=== PATIENT | female | born 1945 | race Caucasian/White ===

== ENCOUNTER → 2017-09-09 | Outpatient (CLI) | payer MEDICARE ==
--- NOTE | 2017-09-13 08:29 | MM ---
Reason for exam: screening (asymptomatic). Last mammogram was performed 1 year ago. History: Patient is postmenopausal. Physical Findings: A clinical breast exam by your physician is recommended on an annual basis and results should be correlated with mammographic findings. MG 3D Screening Mammo W/Cad Bilateral CC and MLO view(s) were taken. Prior study comparison: August 31, 2016, bilateral MG 3d diag mammo w/cad LADI. April 08, 2016, right breast MG 3d diag mammo w/cad RT. The breast tissue is heterogeneously dense. This may lower the sensitivity of mammography. No significant changes when compared with prior studies. ASSESSMENT: Benign, BI-RAD 2 RECOMMENDATION: Routine screening mammogram of both breasts in 1 year.
--- NOTE | 2017-09-15 12:33 | P.ARTDOP ---
Arterial Doppler LOWER EXTREMITY ARTERIAL DOPPLER: DATE OF SERVICE: 09/09/2017 Reason for study: Bilateral leg pain. Doppler waveforms: Multiphasic bilaterally throughout. Pulse volume recording: Normal configuration. Pressure gradients: None. Ankle-brachial indices: Greater than 1 bilaterally. Toe pressures: [] on the right, [] on the left Impression: Normal study.
== END | disposition home or self-care (01) ==
LOC: RADMAMWWP 13:55
PROVIDERS: ATTEND Family Medicine
DX: Z12.31 Encounter for screening mammogram for malignant neoplasm of breast (principal); M79.659 Pain in unspecified thigh
CPT/HCPCS: 77063; 93923; G0202

== ENCOUNTER → 2019-12-15 | Outpatient (CLI) | payer MEDICARE ==
[2019-12-15 10:49] LABS: HCT 44.1 % (34.0-46.0); HGB 13.9 gm/dL (11.4-16.0); MCHC 31.6 g/dL (31.0-37.0); MCV 91.8 fL (80.0-100.0); Mean Platelet Volume 7.5; Platelet Count 277 k/uL (150-450); RBC 4.81 m/uL (3.80-5.40); RDW 12.3 % (11.5-15.5); WBC 6.5 k/uL (3.8-10.6)
[2019-12-15 10:56] LABS: Appearance,Urine Clear (Clear); Bilirubin,Urine Negative (Negative); Blood,Urine Small (Negative); Color,Urine Yellow; Glucose,Urine (UA) Negative (Negative); Ketones,Urine Negative (Negative); Leukocyte Esterase,Urine Negative (Negative); Mucus,Urine Rare /hpf; Nitrite,Urine Negative (Negative); PH, Urine 5.5 (5.0-8.0); Protein,Urine Negative (Negative); RBC,Urine 6 /hpf (0-5); Specific Gravity,Urine 1.018 (1.001-1.035); Urobilinogen,Urine <2.0 mg/dL (<2.0); WBC,Urine 1 /hpf (0-5)
[2019-12-15 11:06] LABS: ALT 13 U/L (4-34); AST 24 U/L (14-36); African American GFR (CKD) >90 (>60 ml/min/1.73 sqM); Albumin 4.3 g/dL (3.5-5.0); Alkaline Phosphatase 77 U/L (38-126); Anion Gap 6 mmol/L; Blood Urea Nitrogen 14 mg/dL (7-17); Calcium 9.5 mg/dL (8.4-10.2); Carbon Dioxide 26 mmol/L (22-30); Chloride 108 mmol/L (98-107); Glucose 91 mg/dL (74-99); INR 0.9 (<1.2); Non-African American GFR(CKD) 89 (>60 ml/min/1.73 sqM); Partial Thromboplastin Time 25.4 sec (22.0-30.0); Potassium 4.3 mmol/L (3.5-5.1); Prothrombin Time 9.8 sec (9.0-12.0); Sodium 140 mmol/L (137-145); Total Bilirubin 0.5 mg/dL (0.2-1.3)
== END | disposition home or self-care (01) ==
LOC: LABPAT 10:01
PROVIDERS: ATTEND Orthopaedic Surgery
DX: Z01.812 Encounter for preprocedural laboratory examination (principal); M16.11 Unilateral primary osteoarthritis, right hip; Z79.01 Long term (current) use of anticoagulants
CPT/HCPCS: 36415; 80053; 81001; 85027; 85610; 85730; 87070

== ENCOUNTER 2019-12-26 05:30 | Day surgery (SDC) | payer MEDICARE ==
[2019-12-18 15:06] VITALS: BMI 28.2
[~2019-12-26 05:30] MED LIST: ACETAMINOPHEN TAB 500 MG TAB PO ONE; GABAPENTIN 300 MG CAP PO ONE; MELOXICAM 7.5 MG TAB PO ONE; TRANEXAMIC ACID 1,000 MG in SODIUM CHLORIDE 0.9% 100 ML IVPB ONE
[2019-12-26] MEDS ORDERED: ONDANSETRON 4 MG/2 ML VIAL IVP ONE (05:41)
[2019-12-26] MEDS ORDERED: MIDAZOLAM 2 MG/2 ML VIAL IV PRN (05:41)
[2019-12-26] MEDS ORDERED: HYDROmorphone 0.5 MG/0.5 ML SYRINGE IVP PRN ×4 (05:41→08:31)
[2019-12-26] MEDS ORDERED: DEXAMETHASONE SOD PHOSPHATE 10 MG/ML 1 ML VIAL IV ONE (05:41)
[2019-12-26] MEDS: LACTATED RINGERS 1,000 ML IV SCH ×4 (06:10→21:42)
[2019-12-26] MEDS ORDERED: LIDOCAINE 1% 20 ML VIAL (10MG/ML) FOR IV START INTRADERMA ONE ×2 (06:10→06:13)
[2019-12-26] MEDS ORDERED: ceFAZolin 3,000 MG in SODIUM CHLORIDE 0.9% IRRIGATIO 3,000 ML IRRIGATION ONE (07:00)
[2019-12-26] MEDS: ROPIVACAINE 246.25 MG, EPINEPHrine 0.5 MG, KETOROLAC 30 MG, cloNIDine HCL/PF 80 MCG, WA... MISCELLANE ONE ×10 (07:22→08:11)
[2019-12-26] MEDS ORDERED: SODIUM CHLORIDE 0.9% 100 ML BAG ONE (07:54)
[2019-12-26] MEDS ORDERED: fentaNYL (PF) 50 MCG/ML 2 ML AMP ONE (07:54)
[2019-12-26] MEDS ORDERED: HEPARIN SODIUM,PORCINE 10,000 UNIT/ML 1 ML VIAL ONE (07:54)
[2019-12-26] MEDS ORDERED: MIDAZOLAM 2 MG/2 ML VIAL ONE (07:54)
[2019-12-26] MEDS ORDERED: ePHEDrine SULFATE/0.9% NACL/PF 50 MG/5 ML SYRINGE IV ONE (07:54)
[2019-12-26] MEDS ORDERED: PROPOFOL 10 MG/ML 20 ML VIAL IV ONE (07:54)
[2019-12-26] MEDS ORDERED: TRANEXAMIC ACID 1,000 MG/10 ML VIAL ONE (07:54)
[2019-12-26] MEDS ORDERED: SODIUM CHLORIDE 0.9% IRRIG 1,000 ML BTL IRRIGATION ONE (07:54)
[2019-12-26] MEDS ORDERED: LACTATED RINGERS 1,000 ML IV ONE ×2 (08:22)
[2019-12-26] MEDS ORDERED: NALOXONE 0.4 MG/ML 1 ML VIAL IV PRN (08:31)
[2019-12-26] MEDS ORDERED: HYDROcodone/APAP 7.5-325MG 1 EACH TAB PO PRN (08:31)
[2019-12-26] MEDS ORDERED: DIAZEPAM 5 MG TAB PO PRN (08:31)
[2019-12-26] MEDS ORDERED: MAGNESIUM HYDROXIDE 2,400 MG/10 ML CUP PO PRN (08:31)
[2019-12-26] MEDS ORDERED: ONDANSETRON 4 MG/2 ML VIAL IVP PRN (08:31)
[2019-12-26] MEDS ORDERED: ACETAMINOPHEN TAB 325 MG TAB PO PRN (08:31)
[2019-12-26] MEDS ORDERED: traMADol 50 MG TAB PO PRN (08:31)
--- NOTE | 2019-12-26 08:31 | P.OP ---
Date of Procedure: 12/26/19 Preoperative Diagnosis: Severe osteoarthritis right hip Postoperative Diagnosis: Severe osteoarthritis right hip Procedure(s) Performed: Right total hip arthroplasty with a direct anterior approach Implants: Pruett and nephew Polarstem size 3 standard Pruett [employer] Nephew R3, 3 hole acetabular shell, 48 mm Pruett [employer] Nephew reflection 6.5 mm cancellus screw, 20 mm 2 Pruett [employer] Nephew R3, XLPE 20 acetabular liner Pruett [employer] Nephew Oxinium femoral head 32 m, -3 All components were press-fit. The articulation is Oxinium on polyethylene. Anesthesia: spinal Surgeon: Jordy Ocampo Pathology: none sent (Femoral head) Condition: stable Disposition: PACU Indications for Procedure: After failure of conservative treatment we discussed the surgical and nonsurgical treatment options at length. Patient wishes to proceed with a total hip arthroplasty with a direct anterior approach. Complications specific to this procedure were discussed at length, including but not limited to infection, leg length discrepancy, dislocation, and nerve injury. Patient is aware of all these complications and informed consent was obtained Operative Findings: The operative findings are consistent with severe osteoarthritis of the right hip Description of Procedure: Patient was seen and evaluated in the preoperative area, consent was reviewed, and the surgical site was marked with a skin marker. Patient was then brought to the operating room and given prophylactic antibiotics intravenously. 1 g of Tranexamic acid was also given. A spinal anesthetic was administered by the anesthesia department. The patient was then placed on the [place] table with the bony prominences well-padded. The hip area was then prepped and draped in usual sterile fashion. A universal timeout was then performed, which confirmed the patient's name, surgical site, ALLERGIES, and procedure being performed. Next the incision site was located at 1 cm distal and 1 cm lateral to the anterior superior iliac spine. The skin and subcutaneous tissues were sharply incised. Incision was carefully dissected down to the fascia overlying the tensor fascia sade muscle. This fascia was then incised in line with the incision. Next, using blunt finger dissection, the tensor fascia sade muscle was dissected off its investing fascia. The muscle was then carefully retracted laterally with a cobra retractor over the lateral neck of the femur. Next, the circumflex vessels were identified and cauterized using the AquaMantis device. The anterior hip capsule was then exposed. The capsule was then opened and an inverted T fashion. Cobra retractors were then placed intracapsularly. The proximal femur was then visualized. The femoral neck was then osteotomized appropriate level above the lesser trochanter. Small amount of traction was placed with the [place] table. A small wedge of bone was then removed from the remaining femoral head. Next, using a corkscrew femoral head was easily removed from the acetabulum. On gross visual inspection, the femoral head had complete loss of articular cartilage in multiple periarticular osteophytes. Attention was then turned to the acetabulum. the acetabulum was exposed and any remaining labrum was excised. Sequential reaming of the acetabulum was performed using fluoroscopic guidance. When the appropriate size was reached, a trial was then placed. The position and fit of the trial was checked with fluoroscopy. The trial was then removed. Then, using fluoroscopic guidance, the final implant was impacted at 20 of anteversion and 40 of abduction, and fully seated in the acetabulum. 2 screws were then placed in the acetabulum. Again fluoroscopy was used to check position of the screws. Next, the liner was then impacted, with a 20 elevated liner located in the anterior superior quadrant. Component locking was confirmed. Attention was then directed to the femur. With the aid of the [place] table, the femur was externally rotated to approximately 130, extended, and abducted under the opposite leg. A side hook was then placed under the proximal femur, and the side hook elevator was used to elevate the proximal femur. Retractors were then placed. A capsular release was performed, as well as a release of the conjoined tendon, which afforded excellent visualization of the proximal femur. Next, a box osteotome was used to lateralize the proximal femur. A hand straightener was then used to locate the femoral canal. Sequential broaching was then performed with appropriate size which afforded excellent fixation in the proximal femur. A trial was then placed with appropriate head and neck, and the hip was gently reduced with the aid of the [place] table. Fluoroscopy was then used to check position of the components, as well as to ensure equal leg lengths. The hip was then gently dislocated and the trials were then removed. Final implants were then impacted and the hip was again reduced. Final fluoroscopic x-rays confirmed that the components were in anatomic position, as well as equal leg lengths. The hip was also taken through range of motion, and found to be stable. The hip was then copiously irrigated with antibiotic solution with pulsatile lavage. The hip was then irrigated with Irrisept solution. The soft tissues were then injected with a ropivacaine solution, which consisted of 246.25 mg of ropivacaine, 0.5 mg of epinephrine, 30 mg of Toradol, 80 g of clonidine, and 48.45 mL of sterile water, for a total of 100 mL of fluid injected. A second dose of 1 g of Tranexamic acid was also given. the fascia was then closed with 2-0 strata fix suture. The subcutaneous tissue was closed with 3-0 Vicryl. The subcuticular tissue was closed with 3-0 strata fix suture. The skin was then closed with Dermabond glue and a sterile silver dressing. The patient was then transferred to the recovery room in stable condition.
--- NOTE | 2019-12-26 09:39 | XR ---
EXAMINATION TYPE: XR Hip Limited RT DATE OF EXAM: 12/26/2019 Comparison: None Clinical History: 74-year-old female status post hip surgery, assess surgical alignment Findings: Right total hip arthroplasty is demonstrated. The acetabular cup and femoral stem components of the p rosthesis appear well seated without periprosthetic fracture. Scattered soft tissue air related to re cent operation. Alignment grossly anatomic. Impression: Uncomplicated postoperative appearance right total hip arthroplasty.
--- NOTE | 2019-12-26 10:33 | FL ---
EXAMINATION TYPE: FL guidance operating room, XR Hip Limited RT DATE OF EXAM: 12/26/2019 COMPARISON: NONE HISTORY: 74-year-old female in anterior right hip replacement FINDINGS: 2 intraoperative images showing placement of right total hip arthroplasty. FLUOROSCOPY Fluoroscopy time of 31 seconds was used during anterior right hip replacement. 2 image/s document/s the procedure. IMPRESSION: Intraoperative fluoroscopy as above.
[2019-12-26] MEDS ORDERED: MULTIVITAMINS, THERA 1 EACH TAB PO SCH (12:00)
[2019-12-26] MEDS: HYDROcodone/APAP 7.5-325MG 1 EACH TAB PO PRN ×2 (14:23→21:47)
--- NOTE | 2019-12-26 20:31 | P.CONS ---
History of Present Illness - Reason for Consult Consult date: 12/26/19 Medical management Requesting physician: Jordy Ocampo - Chief Complaint Right hip surgery - History of Present Illness Consultation: This is a very pleasant [address] Delphine Loyola. Chronic stable medical conditions include GERD, hypertension, osteoarthritis in multiple joints and anxiety depression. Patient underwent a right total hip arthroplasty. Postpro cedure pain is well controlled. No nausea vomiting. Patient did tolerate a light meal. No chest pain or shortness of breath. Daughter the bedside. Review of systems: GEN.: None EYES: None HEENT: None NECK: None RESPIRATORY: None CARDIOVASCULAR: None GASTROINTESTINAL: Heartburn GENITOURINARY: None MUSCULOSKELETAL: Joint pains LYMPHATICS: None HEMATOLOGICAL: None PSYCHIATRY: None NEUROLOGICAL: None Past medical history to include: GERD, hypertension, osteoarthritis, anxiety depression Social history: Smokes a pack over 3 days, alcohol socially, lives alone Family history: Reviewed, noncontributory to presentation Physical examination: VITAL SIGNS: 97.9, 69, 12, 106/63, 93% on room air GENERAL: [BMI 28.9, propped up in bed, comfortable. EYES: Pupils equal. Conjunctiva normal. HEENT: External appearance of nose and ears normal, oral cavity grossly normal. NECK: JVD not raised; masses not palpable. HEART: First and second heart sounds are normal; no edema. LUNGS: Respiratory rate normal; clear to auscultation. ABDOMEN: Soft, nontender, liver spleen not palpable, no masses palpable. PSYCH: Alert and oriented x3; mood and affect normal. MUSCULOSKELETAL: Evidence of OA in the hands, dressing over the right hip NEUROLOGICAL: Cranial nerves grossly intact; no facial asymmetry, power and sensation grossly intact. LYMPHATICS: No lymph nodes palpable in the axilla and neck INVESTIGATIONS, reviewed in the clinical context: Labs from 12/15/2039 White count 6.5 hemoglobin 13.9 potassium 4.3 creatinine 0.64 Assessment: -Right total hip arthroplasty -GERD -Essential hypertension -Primary osteoarthritis -Anxiety depression otherwise specified -Chronic nicotine dependence patient cigarette smoker Plan: Home medications resumed. Patient's aspirin 325 mg twice a day for DT prophylaxis per Dr. Ocampo. Care was discussed with the patient daughter. Question were answered. Thank you Dr. Ocampo Past Medical History Past Medical History: GERD/Reflux, Hypertension, Osteoarthritis (OA) History of Any Multi-Drug Resistant Organisms: None Reported Past Surgical History: Cholecystectomy, Hysterectomy, Joint Replacement Additional Past Surgical History / Comment(s): eliel hip replacement,elbow surgery, cyst surgery Past Anesthesia/Blood Transfusion Reactions: Postoperative Nausea & Vomiting (PONV) Past Psychological History: Anxiety, Depression Smoking Status: Current every day smoker Past Alcohol Use History: Occasional Additional Past Alcohol Use History / Comment(s): smoker since social smoker Past Drug Use History: None Reported - Past Family History Mother Family Medical History: No Reported History Medications and Allergies Home Medications Medication Instructions Recorded Confirmed Type Escitalopram [Lexapro] 10 mg PO DAILY 12/18/19 12/18/19 History Omeprazole 20 mg PO Q48H 12/18/19 12/18/19 History Simvastatin [Zocor] 20 mg PO DAILY 12/18/19 12/18/19 History amLODIPine BESYLATE/BENAZEPRIL 1 each PO DAILY 12/18/19 12/18/19 History [amLODIPine BESYLATE/BENAZEPRIL 5-10 mg] Allergies Allergy/AdvReac Type Severity Reaction Status Date / Time No Known Allergies Allergy Verified 12/26/19 05:57 Physical Exam Vitals: Vital Signs Temp Pulse Resp BP Pulse Ox 12/26/19 09:45 71 16 104/56 95 12/26/19 09:30 66 16 111/56 95 12/26/19 09:15 71 16 109/55 94 L 12/26/19 08:58 68 16 105/56 94 L 12/26/19 06:08 97.8 F 82 16 153/88 96 Intake and Output 12/25/19 12/26/19 12/26/19 22:59 06:59 14:59 Intake Total 100 1001 Output Total 150 Balance 100 851 Intake: IV 100 1001 Output: Estimated Blood Loss 150 Other: Weight 81.2 kg 81.2 kg
[2019-12-26] MEDS: ASPIRIN 325 MG TAB PO SCH (20:50)
[2019-12-26] MEDS ORDERED: SENNOSIDES-DOCUSATE SODIUM 1 EACH TAB PO SCH (21:00)
[2019-12-26] MEDS ORDERED: TEMAZEPAM 15 MG CAP PO PRN (21:00)
[2019-12-27 04:00] VITALS: TEMP 97.8
[2019-12-27] MEDS: LACTATED RINGERS 1,000 ML IV SCH (06:43)
[2019-12-27 07:32] LABS: Basophils % (A) 0 %; Eosinophils % (A) 0 %; HCT 34.2 % (34.0-46.0); HGB 11.2 gm/dL (11.4-16.0); Lymphocytes # (A) 1.5 k/uL (1.0-4.8); Lymphocytes % (A) 14 %; MCH 30.3 pg (25.0-35.0); MCHC 32.7 g/dL (31.0-37.0); MCV 92.4 fL (80.0-100.0); Mean Platelet Volume 8.1; Monocytes # (A) 0.8 k/uL (0-1.0); Monocytes % (A) 7 %; Neutrophils # (A) 8.4 k/uL (1.3-7.7); Neutrophils % (A) 77 %; Platelet Count 240 k/uL (150-450); RDW 12.2 % (11.5-15.5); WBC 10.8 k/uL (3.8-10.6)
[2019-12-27] MEDS: HYDROcodone/APAP 7.5-325MG 1 EACH TAB PO PRN (07:35)
[2019-12-27] MEDS: ASPIRIN 325 MG TAB PO SCH (07:35)
[2019-12-27 07:48] VITALS: BP 112/67; PULSE 67; RESP 16
--- NOTE | 2019-12-27 08:30 | P.DS ---
Providers Expected date of discharge: 12/27/19 Attending physician: Jordy Ocampo Consults: 12/26/19 08:31 Consult Physician Routine Consulting Provider: Edilson Almeida Consult Reason/Comments: post op medical management Do you want consulting provider notified?: Yes Primary care physician: Delphine Gellerel - Discharge Diagnosis(es) (1) Primary localized osteoarthritis of right hip Current Visit: Yes Status: Acute (2) Status post right hip replacement Current Visit: Yes Status: Acute Hospital Course: This is a 74-year-old female with known history of degenerative arthritis of the right hip. The patient presents for evaluation. After discussion and consideration patient elects to proceed with total hip arthroplasty. The patient is seen preoperatively by her primary care physician and cleared for surgery. [facility] 12[facility] for right anterior total hip arthroplasty. The procedures performed without complication or sequelae. The patient is doing well postoperatively. Labs and vital signs are stable on day of discharge. On day of discharge patient's hip incision is healing well. There is minimal erythema. There is no drainage noted at this time. There is minimal soft tissue swelling to the hip and thigh. Patient has full foot and ankle motion without difficulty or pain. Neurovascular status to the right lower extremity is intact. Patient is discharged to home in good condition. Pertinent Studies: Laboratory Tests 12/27/19 06:33 WBC 10.8 H RBC 3.70 L Hgb 11.2 L Neutrophils # 8.4 H Patient Condition at Discharge: Stable Plan - Discharge Summary Discharge Rx Participant: No New Discharge Prescriptions: New Aspirin 325 mg PO BID #60 tab Docusate [Colace] 100 mg PO BID #60 capsule Hydrocodone/Acetaminophen [Albert Lea 7.5-325] 1 - 2 tab PO Q4-6H PRN 7 Days #50 tab PRN Reason: Pain No Action amLODIPine BESYLATE/BENAZEPRIL [amLODIPine BESYLATE/BENAZEPRIL 5-10 mg] 1 each PO DAILY Simvastatin [Zocor] 20 mg PO DAILY Escitalopram [Lexapro] 10 mg PO DAILY Omeprazole 20 mg PO Q48H Discharge Medication List Escitalopram [Lexapro] 10 mg PO DAILY 12/18/19 [History] Omeprazole 20 mg PO Q48H 12/18/19 [History] Simvastatin [Zocor] 20 mg PO DAILY 12/18/19 [History] amLODIPine BESYLATE/BENAZEPRIL [amLODIPine BESYLATE/BENAZEPRIL 5-10 mg] 1 each PO DAILY 12/18/19 [History] Aspirin 325 mg PO BID #60 tab 12/27/19 [Rx] Docusate [Colace] 100 mg PO BID #60 capsule 12/27/19 [Rx] Hydrocodone/Acetaminophen [Albert Lea 7.5-325] 1 - 2 tab PO Q4-6H PRN 7 Days #50 tab 12/27/19 [Rx] Follow up Appointment(s)/Referral(s): Jordy Ocampo DO [Doctor of Osteopathic Medicine] - 2 Weeks Activity/Diet/Wound Care/Special Instructions: Weightbearing as tolerated with walker Keep dressing in place for 10 days unless saturated Aspirin 325 mg twice a day May shower over dressing Follow up with Dr. Jordy Ocampo in 2 weeks. Call [facility] with questions or concerns, Discharge Disposition: HOME WITH HOME HEALTH SERVICES
[2019-12-27] MEDS ORDERED: amLODIPine 5 MG TAB PO SCH (09:00)
[2019-12-27] MEDS ORDERED: ATORVASTATIN 10 MG TAB PO SCH (09:00)
[2019-12-27] MEDS ORDERED: LISINOPRIL 10 MG TAB PO SCH (09:00)
[2019-12-27] MEDS ORDERED: ESCITALOPRAM 10 MG TAB PO SCH (09:00)
[2019-12-27] MEDS ORDERED: MULTIVITAMINS, THERA 1 EACH TAB PO SCH (12:00)
[2019-12-28] MEDS ORDERED: PANTOPRAZOLE 40 MG TABLET PO SCH (07:30)
== END 2019-12-27 11:13 | disposition home health service (06) ==
LOC: OR 05:30 → 4SSUR 08:58 → OR 12-27 11:13
PROVIDERS: ATTEND Orthopaedic Surgery
DX: M16.11 Unilateral primary osteoarthritis, right hip (principal); M25.751 Osteophyte, right hip; M51.27 Other intervertebral disc displacement, lumbosacral region; I10 Essential (primary) hypertension; E78.5 Hyperlipidemia, unspecified; F32.9 Major depressive disorder, single episode, unspecified; F39 Unspecified mood [affective] disorder; Z90.710 Acquired absence of both cervix and uterus; Z96.653 Presence of artificial knee joint, bilateral; F17.210 Nicotine dependence, cigarettes, uncomplicated; K21.9 Gastro-esophageal reflux disease without esophagitis; F41.9 Anxiety disorder, unspecified; Z79.891 Long term (current) use of opiate analgesic; Z97.3 Presence of spectacles and contact lenses; Z79.52 Long term (current) use of systemic steroids; Z79.899 Other long term (current) drug therapy
CPT/HCPCS: 97116; 97161; 97165; 86891; 86900; 86901; 85025; 86850; 88300; 73501; 27130; C1776; J2250; J0171; J1644; J1100; J0690 ×2; J2405; J3010; J1885; J2795; J2704; J0735; J1170

== ENCOUNTER → 2021-02-13 | Outpatient (CLI) | payer MEDICARE ==
--- NOTE | 2021-02-14 09:16 | MM ---
Reason for exam: screening (asymptomatic). Last mammogram was performed 1 year and 3 months ago. History: Patient is postmenopausal. Family history of breast cancer in maternal aunt. Physical Findings: A clinical breast exam by your physician is recommended on an annual basis and results should be correlated with mammographic findings. MG 3D Screening Mammo W/Cad Bilateral CC and MLO view(s) were taken. Prior study comparison: November 30, 2019, bilateral MG 3d screening mammo w/cad. October 03, 2018, bilateral MG 3d screening mammo w/cad. The breast tissue is heterogeneously dense. This may lower the sensitivity of mammography. Finding #1: There is a 7 mm equal density (isodense) mass in the lower outer quadrant of the right breast. Finding #2: There are typically benign calcifications in the left breast. ASSESSMENT: Incomplete: need additional imaging evaluation, BI-RAD 0 RECOMMENDATION: Special view mammogram of the right breast. If lesion persists on supplemental views, image directed ultrasound is recommended. [facility] will attempt to contact patient to return for supplemental views and ultrasound if indicated.
== END | disposition home or self-care (01) ==
LOC: RADMAMWWP 15:24
PROVIDERS: ATTEND Family Medicine
DX: Z12.31 Encounter for screening mammogram for malignant neoplasm of breast (principal); Z78.0 Asymptomatic menopausal state; Z80.3 Family history of malignant neoplasm of breast
CPT/HCPCS: 77063; 77067

== ENCOUNTER → 2021-02-19 | Outpatient (CLI) | payer MEDICARE ==
--- NOTE | 2021-02-19 10:48 | MM ---
Reason for exam: additional evaluation requested from abnormal screening. Last mammogram was performed less than 1 month ago. History: Patient is postmenopausal. Family history of breast cancer in maternal aunt. Physical Findings: Nurse did not find any significant physical abnormalities on exam. MG 3D Work Up W/Cad RT Spot compression CC, spot compression MLO, and ML view(s) were taken of the right breast. Prior study comparison: February 13, 2021, bilateral MG 3d screening mammo w/cad. November 30, 2019, bilateral MG 3d screening mammo w/cad. The breast tissue is heterogeneously dense. This may lower the sensitivity of mammography. There is no discrete abnormality including area of concern right lower inner quadrant. No significant new findings when compared with previous films. These results were verbally communicated with the patient and result sheet given to the patient on 02/19/21. ASSESSMENT: Benign, BI-RAD 2 RECOMMENDATION: Return to routine screening mammogram schedule for both breasts.
== END | disposition home or self-care (01) ==
LOC: RADMAMWWP 09:22
PROVIDERS: ATTEND Family Medicine
DX: R92.8 Other abnormal and inconclusive findings on diagnostic imaging of breast (principal); Z78.0 Asymptomatic menopausal state; Z80.3 Family history of malignant neoplasm of breast
CPT/HCPCS: 77065; G0279; 77061

== ENCOUNTER → 2022-02-25 | Outpatient (CLI) | payer MEDICARE ==
--- NOTE | 2022-02-26 12:01 | MM ---
Reason for exam: screening (asymptomatic). Last mammogram was performed 1 year ago. History: Patient is postmenopausal. Family history of breast cancer in maternal aunt. Physical Findings: A clinical breast exam by your physician is recommended on an annual basis and results should be correlated with mammographic findings. MG 3D Screening Mammo W/Cad Bilateral CC and MLO view(s) were taken. Prior study comparison: February 13, 2021, bilateral MG 3d screening mammo w/cad. November 30, 2019, bilateral MG 3d screening mammo w/cad. October 03, 2018, bilateral MG 3d screening mammo w/cad. There are scattered fibroglandular densities. Finding: There is a 6-7 mm high density, oval mass located 11-12 cm from the nipple in the upper outer quadrant, posterior position of the left breast consistent with probable node. New finding since February 13, 2021, November 30, 2019, and October 03, 2018, likely due to difference in technique. ASSESSMENT: Incomplete: need additional imaging evaluation, BI-RAD 0 RECOMMENDATION: Ultrasound of the left breast. [facility] will attempt to contact patient to return for ultrasound.
== END | disposition home or self-care (01) ==
LOC: RADMAMWWP 13:57
PROVIDERS: ATTEND Family Medicine
DX: Z12.31 Encounter for screening mammogram for malignant neoplasm of breast (principal)
CPT/HCPCS: 77063; 77067

== ENCOUNTER → 2022-03-03 | Outpatient (CLI) | payer MEDICARE ==
--- NOTE | 2022-03-03 13:37 | USB ---
Reason for exam: additional evaluation requested from abnormal screening. History: Patient is postmenopausal. Family history of breast cancer in maternal aunt. Physical Findings: A clinical breast exam by your physician is recommended on an annual basis and results should be correlated with mammographic findings. US Breast Workup Limited LT Left limited breast ultrasound including focal area of concern, retroareolar and axilla demonstrates a 0.5 x 0.3 x 0.7cm lymph node at 3 o'clock, 12cm from nipple, may correspond to the mammographic finding. 12-3 o'clock scanned. Results were given to the patient verbally at the time of the exam. ASSESSMENT: Probably benign, BI-RAD 3 RECOMMENDATION: Follow-up diagnostic mammogram of the left breast in 6 months.
== END | disposition home or self-care (01) ==
LOC: RADUSWWP 13:03
PROVIDERS: ATTEND Family Medicine
DX: R92.8 Other abnormal and inconclusive findings on diagnostic imaging of breast (principal)

== ENCOUNTER → 2022-09-09 | Outpatient (CLI) | payer MEDICARE ==
--- NOTE | 2022-09-09 15:10 | MM ---
Reason for Exam: Additional evaluation requested from prior study. Last screening mammogram was performed 6 month(s) ago. Patient History: Menarche at age 13. First Full-Term at age 24. Left ovary removed at age 51. Right ovary removed at age 51. Hysterectomy at age 51. Postmenopausal. Patient has history of breast feeding. Maternal aunt had breast cancer. Risk Values: Ines 5 year model risk: 1.6%. NCI Lifetime model risk: 3.4%. Prior Study Comparison: 08/12/2015 Bilateral Screening Mammogram, [facility]. 08/14/2015 Right Diagnostic Mammogram, [facility]. 08/31/2016 Bilateral Diagnostic Mammogram, [facility]. 09/09/2017 Bilateral Screening Mammogram, [facility]. 10/03/2018 Bilateral Screening Mammogram, [facility]. 11/30/2019 Bilateral Screening Mammogram, [facility]. 02/13/2021 Bilateral Screening Mammogram, [facility]. 02/19/2021 Right Diagnostic Mammogram, [facility]. 02/25/2022 Bilateral Screening Mammogram, [facility]. 03/03/2022 Left Diagnostic Ultrasound, [facility]. Tissue Density: Left: There are scattered fibroglandular densities. Findings: Analyzed By CAD. No new suspicious mass or worrisome cluster microcalcifications. Previous nodular density within the posterior breast only visualized on the MLO view is not definitively visualized on today's examination. This may have represented summation of tissues. Overall Assessment: Incomplete: need additional imaging evaluation, BI-RAD 0 Management: Diagnostic Breast Ultrasound of the left breast. A clinical breast exam by your physician is recommended on an annual basis and results should be correlated with mammographic findings. This exam should not preclude additional follow-up of suspicious palpable abnormalities. Results were given to the patient verbally at the time of exam. Electronically signed and approved by: Bright Vizcarra D.O.
--- NOTE | 2022-09-09 15:10 | MM ---
Reason for Exam: Additional evaluation requested from prior study. Last screening mammogram was performed 6 month(s) ago. Patient History: Menarche at age 13. First Full-Term at age 24. Left ovary removed at age 51. Right ovary removed at age 51. Hysterectomy at age 51. Postmenopausal. Patient has history of breast feeding. Maternal aunt had breast cancer. Risk Values: Ines 5 year model risk: 1.6%. NCI Lifetime model risk: 3.4%. Prior Study Comparison: 08/12/2015 Bilateral Screening Mammogram, [facility]. 08/14/2015 Right Diagnostic Mammogram, [facility]. 08/31/2016 Bilateral Diagnostic Mammogram, [facility]. 09/09/2017 Bilateral Screening Mammogram, [facility]. 10/03/2018 Bilateral Screening Mammogram, [facility]. 11/30/2019 Bilateral Screening Mammogram, [facility]. 02/13/2021 Bilateral Screening Mammogram, [facility]. 02/19/2021 Right Diagnostic Mammogram, [facility]. 02/25/2022 Bilateral Screening Mammogram, [facility]. 03/03/2022 Left Diagnostic Ultrasound, [facility]. Tissue Density: Left: There are scattered fibroglandular densities. Findings: Analyzed By CAD. No new suspicious mass or worrisome cluster microcalcifications. Previous nodular density within the posterior breast only visualized on the MLO view is not definitively visualized on today's examination. This may have represented summation of tissues. Overall Assessment: Incomplete: need additional imaging evaluation, BI-RAD 0 Management: Diagnostic Breast Ultrasound of the left breast. A clinical breast exam by your physician is recommended on an annual basis and results should be correlated with mammographic findings. This exam should not preclude additional follow-up of suspicious palpable abnormalities. Results were given to the patient verbally at the time of exam. Electronically signed and approved by: Bright Vizcarra D.O.
--- NOTE | 2022-09-09 15:37 | USB ---
Patient History: Menarche at age 13. First Full-Term at age 24. Left ovary removed at age 51. Right ovary removed at age 51. Hysterectomy at age 51. Postmenopausal. Patient has history of breast feeding. Maternal aunt had breast cancer. Risk Values: Ines 5 year model risk: 1.6%. NCI Lifetime model risk: 3.4%. Technique: Method: Targeted. Prior Study Comparison: 02/13/2021 Bilateral Screening Mammogram, [facility]. 02/19/2021 Right Diagnostic Mammogram, [facility]. 02/25/2022 Bilateral Screening Mammogram, [facility]. Findings: The upper outer quadrant of the left breast, the axilla of the left breast and the retroareolar of the left breast were scanned. Targeted ultrasound of the left breast from 12-3 o'clock 6 and 12 cm from the nipple with additional evaluation the nipple adnexal. No discrete solid or cystic lesion identified..Targeted ultrasound of the left breast from 12-3 o'clock 6 and 12 cm from the nipple with additional evaluation the nipple and axilla. No discrete solid or cystic lesion identified.. Overall Assessment: Benign, BI-RAD 2 Management: Diagnostic Mammogram of both breasts in 6 months. A clinical breast exam by your physician is recommended on an annual basis and results should be correlated with mammographic findings. This exam should not preclude additional follow-up of suspicious palpable abnormalities. ??Results were given to the patient verbally at the time of exam. Electronically signed and approved by: Bright Vizcarra D.O.
--- NOTE | 2022-09-09 15:37 | USB ---
Patient History: Menarche at age 13. First Full-Term at age 24. Left ovary removed at age 51. Right ovary removed at age 51. Hysterectomy at age 51. Postmenopausal. Patient has history of breast feeding. Maternal aunt had breast cancer. Risk Values: Ines 5 year model risk: 1.6%. NCI Lifetime model risk: 3.4%. Technique: Method: Targeted. Prior Study Comparison: 02/13/2021 Bilateral Screening Mammogram, [facility]. 02/19/2021 Right Diagnostic Mammogram, [facility]. 02/25/2022 Bilateral Screening Mammogram, [facility]. Findings: The upper outer quadrant of the left breast, the axilla of the left breast and the retroareolar of the left breast were scanned. Targeted ultrasound of the left breast from 12-3 o'clock 6 and 12 cm from the nipple with additional evaluation the nipple adnexal. No discrete solid or cystic lesion identified..Targeted ultrasound of the left breast from 12-3 o'clock 6 and 12 cm from the nipple with additional evaluation the nipple and axilla. No discrete solid or cystic lesion identified.. Overall Assessment: Benign, BI-RAD 2 Management: Diagnostic Mammogram of both breasts in 6 months. A clinical breast exam by your physician is recommended on an annual basis and results should be correlated with mammographic findings. This exam should not preclude additional follow-up of suspicious palpable abnormalities. ??Results were given to the patient verbally at the time of exam. Electronically signed and approved by: Bright Vizcarra D.O.
== END | disposition home or self-care (01) ==
LOC: RADMAMWWP 14:25
PROVIDERS: ATTEND Family Medicine
DX: R92.8 Other abnormal and inconclusive findings on diagnostic imaging of breast (principal)
CPT/HCPCS: 77065; 76642; G0279; 77061

== ENCOUNTER → 2023-03-16 | Outpatient (CLI) | payer MEDICARE ==
--- NOTE | 2023-03-18 09:08 | MM ---
Reason for Exam: Follow-up at short interval from prior study. Last screening mammogram was performed 12 month(s) ago. Patient History: Menarche at age 13. First Full-Term at age 24. Left ovary removed at age 51. Right ovary removed at age 51. Hysterectomy at age 51. Postmenopausal. Patient has history of breast feeding. Maternal aunt had breast cancer. Risk Values: Ines 5 year model risk: 1.6%. NCI Lifetime model risk: 3.2%. Tissue Density: The breast tissue is heterogeneously dense. This may lower the sensitivity of mammography. Findings: Analyzed By CAD. No mass or distortion. No suspicious calcifications present. Overall Assessment: Negative, BI-RAD 1 Management: Screening Mammogram of both breasts in 1 year. A clinical breast exam by your physician is recommended on an annual basis and results should be correlated with mammographic findings. This exam should not preclude additional follow-up of suspicious palpable abnormalities. Results were given to the patient verbally at the time of exam. Electronically signed and approved by: Vinh Herrera M.D. Radiologis
== END | disposition home or self-care (01) ==
LOC: RADMAMWWP 14:17
PROVIDERS: ATTEND Family Medicine
DX: R92.8 Other abnormal and inconclusive findings on diagnostic imaging of breast (principal); Z78.0 Asymptomatic menopausal state; Z80.3 Family history of malignant neoplasm of breast
CPT/HCPCS: 77066; G0279; 77062